=== PATIENT | male | born 1955 | race Caucasian/White ===

== ENCOUNTER 2024-03-12 15:31 | Outpatient (CLI) | payer MEDICARE, SELFPAY | END 2024-03-12 15:32 | disposition home or self-care (01) | LOC: AMB 03-21 06:33 | PROVIDERS: Visit Provider Internal Medicine | DX: R41.82 Altered mental status, unspecified (principal); R53.1 Weakness | CPT/HCPCS: A0425; A0427 ==

== ENCOUNTER 2024-06-18 15:09 | Outpatient (CLI) | payer MEDICARE, SELFPAY | END 2024-06-18 15:10 | disposition home or self-care (01) | LOC: AMB 06-21 08:49 | PROVIDERS: Visit Provider Internal Medicine | DX: S49.92XA Unspecified injury of left shoulder and upper arm, initial encounter (principal); S49.82XA Other specified injuries of left shoulder and upper arm, initial encounter; W20.8XXA Other cause of strike by thrown, projected or falling object, initial encounter; Y93.89 Activity, other specified; Y92.007 Garden or yard of unspecified non-institutional (private) residence as the place of occurrence of the external cause | CPT/HCPCS: A0425; A0433 ==